=== PATIENT | female | born 1960 | race Caucasian/White ===

== ENCOUNTER 2023-03-15 11:16 | Emergency (ER) | payer OTHER ==
[2023-03-15 11:28] VITALS: BP 169/105
[2023-03-15] MEDS ORDERED: BUFFERED LIDOCAINE 10 ML SYRINGE SUBQ STA (11:33)
--- NOTE | 2023-03-15 11:33 | ED Physician Documentation ---
PD HPI UPPER EXT INJURY - Stated complaint Stated Complaint: RT HAND INJ - Chief complaint Chief Complaint: Laceration - History obtained from History obtained from: Patient - Additonal information Additional information: Patient presents from home by private vehicle for right hand injury. Patient was in the garage when she excellently shut the garage door on her right hand. There is a wound on the palmar surface of her middle finger and she is concerned that she may need stitches. Uncertain when her last tetanus shot was. Review of Systems Constitutional: denies: Fever, Chills Skin: reports: Laceration (s). denies: Rash, Lesions PD PAST MEDICAL HISTORY - Present Medications Home Medications: Ambulatory Orders Medication Instructions Recorded Confirmed Sulfamethox/Trimeth 800/160 1 each PO BID #14 tablet 03/15/23 [Bactrim Ds 800/160] - Allergies Allergies/Adverse Reactions: Allergies Allergy/AdvReac Type Severity Reaction Status Date / Time No Known Drug Allergies Allergy Verified 03/15/23 11:23 PD ED PE NORMAL - Vitals Vital signs reviewed: Yes - General General: Alert and oriented X 3, No acute distress, Well developed/nourished - Cardiac Cardiac: RRR, Strong equal pulses - Respiratory Respiratory: No respiratory distress, Clear bilaterally - Abdomen Abdomen: Soft - Derm Derm: Normal color, Warm and dry, No rash, Other (2cm horizontal laceration DIP) - Extremities Extremities: No tenderness to palpate, Normal ROM s pain, No edema - Neuro Neuro: Alert and oriented X 3, make ready mechanic 2-12 intact, No motor deficit, Normal speech Results - Vitals Vitals: Oxygen O2 Source Room air Procedures - Laceration (location) Finger right Palmar Wound type: Linear Neurovascular status: Sensory intact, Motor intact, Vascular intact Tendon involvement: Tendon intact Anesthesia: Lidocaine 1% Wound preparation: Irrigated copiously NS Skin layer closure: Nylon, Size #-0 - enter number (4), Sutures - enter # (6) Other: Patient tolerated well, No complications, Neurovascular intact, Dressing applied, Tetanus booster given PD Medical Decision Making - ED course Complexity details: reviewed results ED course: Accidental hand laceration. Patient called her doctor's office and stated that she was not up-to-date on her tetanus shot, this was updated in the emergency department. Wound irrigated, x-rays reviewed. Wound repaired per procedure note. Clean dry dressing applied. Neurovascularly intact at time of discharge. Departure - Departure Disposition: 01 Home, Self Care Clinical Impression: Laceration Condition: Stable Instructions: ED Laceration Hand Prescriptions: Sulfamethox/Trimeth 800/160 [Bactrim Ds 800/160] 1 each PO BID #14 tablet Comments: 5-7 DAYS FOR SUTURE REMOVAL. KEEP CLEAN AND DRY. Forms: PCP List Discharge Date/Time: 03/15/23 12:42
--- NOTE | 2023-03-15 11:59 | XRAY Report ---
PROCEDURE: Finger(s) RT INDICATIONS: GARAGE DOOR CRUSH INJ TECHNIQUE: PA hand, 2 views of the middle finger acquired. COMPARISON: None. FINDINGS: Bones: No acute fractures or dislocations. No suspicious bony lesions. Severe degenerative changes are seen at the 2nd and 3rd distal interphalangeal joints and the 1st carpometacarpal joint. Addition al mild scattered degenerative changes are present. Soft tissues: No suspicious soft tissue calcifications or masses. Soft tissue edema is seen in the middle finger. IMPRESSION: 1.No acute osseous abnormality. If there is clinical concern or persistent symptoms, additional imagi ng such as repeat radiographs or advanced imaging (e.g. CT, MRI) may be helpful for further evaluatio n. 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 Reviewed by: Leonardo Valencia MD on 03/15/2023 11:58 AM PDT Approved by: Leonardo Valencia MD on 03/15/2023 11:58 AM PDT Station ID: [id number]
[2023-03-15] MEDS ORDERED: TETANUS/DIPHTHERIA/PERTUSSIS 0.5 ML SYRINGE IM ONE (12:05)
== END 2023-03-15 12:42 | disposition home or self-care (01) ==
LOC: ED 11:16
DX: S61.212A Laceration without foreign body of right middle finger without damage to nail, initial encounter (principal); W23.0XXA Caught, crushed, jammed, or pinched between moving objects, initial encounter; Y92.015 Private garage of single-family (private) house as the place of occurrence of the external cause; Z23 Encounter for immunization
CPT/HCPCS: 12001; 90471; 99283